=== PATIENT | male | born 1955 | race Caucasian/White ===

== ENCOUNTER → 2017-08-21 13:37 | Outpatient (CLI) | payer MEDICAID ==
[2017-08-21 14:00] LABS: INR 2.64 (0.85-1.17); PROTIME 27.5 SECONDS (11.6-15.0)
== END | disposition home or self-care (01) ==
LOC: D.LABREF 13:37
PROVIDERS: Orthopaedic Surgery
DX: Z51.81 Encounter for therapeutic drug level monitoring (principal); Z79.01 Long term (current) use of anticoagulants

== ENCOUNTER → 2017-08-28 15:02 | Outpatient (CLI) | payer MEDICAID ==
[2017-08-28 16:24] LABS: INR 1.47 (0.85-1.17); PROTIME 17.3 SECONDS (11.6-15.0)
== END | disposition home or self-care (01) ==
LOC: D.LABREF 15:02
PROVIDERS: Orthopaedic Surgery
DX: Z51.81 Encounter for therapeutic drug level monitoring (principal); Z79.01 Long term (current) use of anticoagulants